=== PATIENT | male | born 1980 | race Caucasian/White ===

== ENCOUNTER 2016-08-04 18:25 | Inpatient (IN) | payer SELFPAY ==
--- NOTE | 2016-08-04 18:37 | PDOC ---
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 The patient had two seizures in front of the hospital with head trauma from falling face down on the concrete. He sustained a laceration to the center of his forehead. The seizures were witnessed by bystanders and ED staff after rapid response was called. The patient was rushed down into the ED. Upon arrival to the hospital, the patient was confused and combative. He currently complains of right shoulder pain. <Jasmyne Red - Last Filed: 08/04/16 19:56> <Noreen Hammodn - Last Filed: 08/05/16 02:36> - General Chief Complaint: Seizure Stated Complaint: SEIZURES Time Seen by Provider: 08/04/16 18:36 Past History <Jasmyne Red - Last Filed: 08/04/16 19:56> <Noreen Hammond - Last Filed: 08/05/16 02:36> - Past Medical History Allergies/Adverse Reactions: Allergies Allergy/AdvReac Type Severity Reaction Status Date / Time Penicillins Allergy Verified 08/04/16 18:56 sulfacetamide sodium Allergy Verified 08/04/16 18:56 [From Sulfamide] Home Medications: Ambulatory Orders Alprazolam 2 mg PO TID 08/04/16 Fluoxetine HCl [Prozac -] 40 mg PO DAILY 08/04/16 Lisdexamfetamine Dimesylate [Vyvanse] 50 mg PO DAILY 08/04/16 Review of Systems - Review of Systems Comments:: 08/04/16 18:44 CONSTITUTIONAL: Absent: fever, chills, diaphoresis, generalized weakness, malaise, loss of appetite HEENT: Present: forehead laceration Absent: rhinorrhea, nasal congestion, throat pain, throat swelling, difficulty swallowing, mouth swelling, ear pain, eye pain, visual changes CARDIOVASCULAR: Absent: chest pain, syncope, palpitations, irregular heart rate, lightheadedness , peripheral edema RESPIRATORY: Absent: cough, shortness of breath, dyspnea with exertion, orthopnea, wheezing, stridor, hemoptysis GASTROINTESTINAL: Absent: abdominal pain, abdominal distension, nausea, vomiting, diarrhea, constipation, melena, hematochezia GENITOURINARY: Absent: dysuria, frequency, urgency, hesitancy, hematuria, flank pain, genital pain MUSCULOSKELETAL: Present: right shoulder pain Absent: myalgia, arthralgia, joint swelling SKIN: Absent: rash, itching, pallor HEMATOLOGIC/IMMUNOLOGIC: Absent: easy bleeding, easy bruising, lymphadenopathy, frequent infections ENDOCRINE: Absent: unexplained weight gain, unexplained weight loss, heat intolerance, cold intolerance NEUROLOGIC: Present: seizures Absent: headache, focal weakness or paresthesia, dizziness, unsteady gait, mental status changes, bladder or bowel incontinence. PSYCHIATRIC: Absent: anxiety, depression, suicidal or homicidal ideation, hallucinations <Jasmyne Red - Last Filed: 08/04/16 19:56> *Physical Exam - Physical Exam Comments: 08/04/16 19:40 GENERAL: Well developed, well nourished. Combative, confused, in distress. HEENT: Normocephalic. 3cm linear forehead laceration. PERRLA, EOMI. No conjunctival pallor. Sclera are non-icteric. Moist mucous membranes. Oropharynx is clear. NECK: Supple. Full ROM. No JVD. Carotid pulses 2+ and symmetric, without bruits. No thyromegaly. No lymphadenopathy. CARDIOVASCULAR: Tachycardic. No murmurs, rubs, or gallops. Distal pulses are 2+ and symmetric. PULMONARY: No evidence of respiratory distress. Lungs clear to auscultation bilaterally. No wheezing, rales or rhonchi. ABDOMINAL: Soft. Non-tender. Non-distended. No rebound or guarding. No organomegaly. Normoactive bowel sounds. MUSCULOSKELETAL: Normal range of motion at all joints. No bony deformities or tenderness. No CVA tenderness. EXTREMITIES: No cyanosis. No clubbing. No edema. No calf tenderness. SKIN: Warm and dry. Normal capillary refill. No rashes. No jaundice. NEUROLOGICAL: Confused, combative. Tremulous. Cranial nerves 2-12 intact. Normal speech. <Jasmyne Red - Last Filed: 08/04/16 19:56> Procedures - Joint Reduction Right Joint Reduction Site: right: Anterior Dislocation (rt shoulder) Pre-Procedure NV Exam: normal Conscious Sedation: Yes Reduction Attempts: 4 Anesthetic: 1% Lidocaine Amount (mL): 10 Anesthesia: Fentanyl (total 300mg fentanyl) Procedure: Traction Counter Traction (we tried modified stemsi also) Post-Procedure NV Exam: normal Post Joint Reduction Film: joint not reduced Splint: Yes Immobilized: Yes <Noreen Hammond - Last Filed: 08/05/16 02:36> ED Treatment Course - LABORATORY CBC & Chemistry Diagram: 08/04/16 19:00 08/04/16 19:00 - RADIOLOGY Radiograph Interpretation: 08/04/16 19:10 Chest X-Ray Impression: Normal chest. Reported By: Hari Douglas MD 08/04/16 19:[address] Impression: Normal CT scan of the head. No evidence of acute intracranial pathology. Reported By: Hari Douglas MD 08/04/16 19:56 Right Shoulder X-Ray Impression: Anterior shoulder dislocation. Reported By: aHri Douglas MD <Jasmyne Red - Last Filed: 08/04/16 19:56> - LABORATORY CBC & Chemistry Diagram: 08/04/16 19:00 08/04/16 19:00 <Noreen Hammond - Last Filed: 08/05/16 02:36> Medical Decision Making - Critical Care Time Total Critical Care Time (minutes): 120 Critical Care Statement: The care of this patient involved high complexity decision making to prevent further life threatening deterioration of the patient 's condition and/or to evalute & treat vital organ system(s) failure or risk of failure. - Medical Decision Making 08/04/16 21:54 36 yo male had witnessed tonic clonic seizure where he fell forward and landed on his head sustaining a linear forehead laceration and rt shoulder dislocation It occurred in front of the hospital and was a "RAPID RESPONSE" -pt does take xanax 2mg po TID daily and states that he DID take his dose today pt placed on gurney and brought to ER,given ativan 2mg IVP ct scan brain -no acute intracranial pathology -no gross focal neuro deficits now -spoke w neuro Dr Martino who recommended KEPPRA 100mg loading dose and then start keppra 750mg po BID -labs reviewed,cbc and chemistries essentially unremarkable drug tox negative w except for benzo which we gave him 08/05/16 00:57 rt shoulder anterior displacement CONSENT FOR CONSCIOUS SEDATION signed pt received propofol, fentanyl,etomidate -multiple attempts failed to reduce shoulder dislocation. Right arm has Good radial and ulnar pulses,sensation intact,2+ proprioception --pt feels sleepy and on manager cardiac -multiple attempts to reduce rt shoulder dislocation failed .will have to admit plan- admit for ortho and neuro consults 08/05/16 02:35 <Noreen Hammond - Last Filed: 08/05/16 02:36> *DC/Admit/Observation/Transfer - Attestations Scribe Attestion: 08/04/16 19:44 Documentation prepared by Jasmyne Red, acting as internist medical doctor md for Noreen Hammond MD. <Jasmyne Red - Last Filed: 08/04/16 19:56> - Discharge Dispostion Admit: Yes <Noreen Hammond - Last Filed: 08/05/16 02:36> Diagnosis at time of Disposition: Seizure Head trauma Qualifiers: Encounter type: initial encounter Qualified Code(s): S09.90XA - Unspecified injury of head, initial encounter Forehead laceration Qualifiers: Encounter type: initial encounter Qualified Code(s): S01.81XA - Laceration without foreign body of other part of head, initial encounter Dislocation of right shoulder joint Qualifiers: Encounter type: initial encounter Qualified Code(s): S43.004A - Unspecified dislocation of right shoulder joint, initial encounter - Referrals
[2016-08-04 18:56] VITALS: BMI 32.5
[2016-08-04 19:05] LABS: BASOPHIL 0.4 % (0-2.0); EOSINOPHIL 0.5 % (0-4.5); MCH 26.9 pg (25.7-33.7); MCHC 32.5 g/dl (32.0-35.9); MEAN CELL VOLUME 82.5 fl (80-96); MEAN PLT VOLUME 7.6 fl (7.5-11.1); NEUTROPHILS 68.4 % (42.8-82.8); PLATELET COUNT 243 K/MM3 (134-434); RDW 13.5 % (11.9-15.9)
[2016-08-04 19:14] LABS: INR 0.97 (0.82-1.09); PROTHROMBIN TIME (PATIENT) 10.7 SEC (9.98-11.88)
[2016-08-04 19:39] LABS: ALBUMIN 4.1 g/dl (3.4-5.0); ANION GAP 13 (8-16); CALCIUM 9.6 mg/dL (8.5-10.1); CO2 23 mmol/L (21-32); GLUCOSE,RANDOM 87 mg/dL (74-106); SGOT/AST 31 U/L (15-37); SGPT/ALT 58 U/L (12-78)
[2016-08-04 19:41] LABS: ALK PHOS 77 U/L (45-117); BILIRUBIN,TOTAL 0.2 mg/dL (0.2-1.0); COCKROFT - GAULT 137
[2016-08-04] MEDS ORDERED: LIDOCAINE HCL 2% (20ML MULTI-DOSE VIAL) NR ONE (19:56)
[2016-08-04 20:23] LABS: URINE APPEARANCE CLEAR; URINE BILIRUBIN NEGATIVE (NEGATIVE); URINE BLOOD NEGATIVE (NEGATIVE); URINE COLOR STRAW; URINE GLUCOSE (UA) NEGATIVE (NEGATIVE); URINE KETONE NEGATIVE (NEGATIVE); URINE LEUK ESTERASE NEGATIVE (NEGATIVE); URINE NITRITE NEGATIVE (NEGATIVE); URINE PROTEIN NEGATIVE (NEGATIVE); URINE UROBILINOGEN NEGATIVE E.U./dl (0.2-1.0)
[2016-08-04 20:26] LABS: URINE MARIJUANA THC NEGATIVE ng/ml (CUTOFF=50)
[2016-08-04] MEDS ORDERED: PROPOFOL 20 ML ONE ×2 (20:45→21:19)
[2016-08-04] MEDS ORDERED: PROPOFOL 200 MG/20 ML VIAL IVPUSH ONE ×3 (20:59→23:08)
[2016-08-04] MEDS ORDERED: ETOMIDATE 20 MG/10 ML AMPUL IVPUSH ONE ×2 (22:41→23:07)
[2016-08-04] MEDS ORDERED: levETIRAcetam 500 MG/5 ML INJECTION VIAL IVPB ONE (23:58)
[2016-08-05] MEDS ORDERED: levETIRAcetam 500 MG/5 ML INJECTION VIAL IVPB ONE (00:41)
[2016-08-05] MEDS ORDERED: morphine CARPU-JECT 2 MG/1 ML DISP.SYRIN IVPUSH ONE (01:08)
--- NOTE | 2016-08-05 01:26 | HP ---
CHIEF COMPLAINT: Seizure Activity, R- Shoulder Pain, PCP: [facility] ([address] [place] [address] #[phone]) HISTORY OF PRESENT ILLNESS: This is a 36 y/o with a past medical history of Classical Conditioning, PTSD ( served in [place]), Anxiety. Who is presenting to the ED after having seizures in front of the hospital. The patient had two seizures in front of the hospital with head trauma from falling face down on the concrete. He sustained a laceration to the center of his forehead. The seizures were witnessed by bystanders and ED staff after rapid response was called. The patient was rushed down into the ED. Upon arrival to the hospital, the patient was confused and combative. He currently complains of right shoulder pain. Patient reports taking his alprazolam medications 2x daily, but due to recent deaths in his family, he reports taking alprazolam 3x daily- last dose 08/04, 8:30am. Patient denies fever, chills, NELSON, cervical pain, cough, SOB, CP, AP, N/V/D, constipation, dysuria. Patient denies alcohol or street drug use. ER course was notable for: (1) Head CT- No ICH, no mass or lesions (2) Right Shoulder Xray- Anterior Shoulder Dislocation (3) EKG- NSR, no ST or TWI Recent Travel: None PAST MEDICAL HISTORY: See HPI PAST SURGICAL HISTORY: See HPI Social History: Smoking: Cigarettes 5-10/day Alcohol: Denies Drugs: None, except Rx Benzodiazipine Family History: Father: [place], 2/2 [place], Mother: Lymphoma, Pneumonia, Brother: Lung Ca, Brother: Cancer, unknown Allergies Penicillins Allergy (Verified 08/04/16 18:56) sulfacetamide sodium [From Sulfamide] Allergy (Verified 08/04/16 18:56) HOME MEDICATIONS: Home Medications Medication Instructions Recorded Alprazolam 2 mg PO TID 08/04/16 Fluoxetine HCl [Prozac -] 40 mg PO DAILY 08/04/16 Lisdexamfetamine Dimesylate 50 mg PO DAILY 08/04/16 [Vyvanse] REVIEW OF SYSTEMS CONSTITUTIONAL: Absent: fever, chills, diaphoresis, generalized weakness, malaise, loss of appetite, weight change HEENT: Absent: rhinorrhea, nasal congestion, throat pain, throat swelling, difficulty swallowing, mouth swelling, ear pain, eye pain, visual changes CARDIOVASCULAR: Absent: chest pain, syncope, palpitations, irregular heart rate, lightheadedness , peripheral edema RESPIRATORY: Absent: cough, shortness of breath, dyspnea with exertion, orthopnea, wheezing, stridor, hemoptysis GASTROINTESTINAL: Absent: abdominal pain, abdominal distension, nausea, vomiting, diarrhea, constipation, melena, hematochezia GENITOURINARY: Absent: dysuria, frequency, urgency, hesitancy, hematuria, flank pain, genital pain MUSCULOSKELETAL: right shoulder pain Absent: myalgia, arthralgia, joint swelling, back pain, neck pain SKIN: Absent: rash, itching, pallor HEMATOLOGIC/IMMUNOLOGIC: Absent: easy bleeding, easy bruising, lymphadenopathy, frequent infections ENDOCRINE: Absent: unexplained weight gain, unexplained weight loss, heat intolerance, cold intolerance NEUROLOGIC: seizure Absent: headache, focal weakness or paresthesias, dizziness, unsteady gait, mental status changes, bladder or bowel incontinence PSYCHIATRIC: depression Absent: anxiety, suicidal or homicidal ideation, hallucinations. PHYSICAL EXAMINATION GENERAL: Awake, alert, and fully oriented, in mild distress. HEAD: Normal with laceration repair to mid forehead, abrasion to L- forehead. EYES: Pupils dilated, equal, round and reactive to light, extraocular movements intact, sclera anicteric, conjunctiva clear. No lid lag. EARS, NOSE, THROAT: Ears normal, nares patent, oropharynx clear without exudates. Moist mucous membranes. NECK: Normal range of motion, supple without lymphadenopathy, JVD, or masses. LUNGS: Breath sounds equal, clear to auscultation bilaterally. No wheezes, and no crackles. No accessory muscle use. HEART: Regular rate and rhythm, normal S1 and S2 without murmur, rub or gallop. ABDOMEN: Soft, nontender, not distended, normoactive bowel sounds, no guarding, no rebound, no masses. No hepatomegaly or splenomegaly. MUSCULOSKELETAL: LROM at RUE, with tenderness to palpation. Normal range of motion at joints LUE, RLE, LLE. No bony deformities. No CVA tenderness. UPPER EXTREMITIES: 2+ pulses, warm, well-perfused. No cyanosis. No clubbing. No peripheral edema. LOWER EXTREMITIES: 2+ pulses, warm, well-perfused. No calf tenderness. No peripheral edema. NEUROLOGICAL: Cranial nerves II-XII intact. Normal speech. Gait not observed PSYCHIATRIC: Cooperative. Good eye contact. Appropriate mood and affect. SKIN: Warm, dry, normal turgor, no rashes or lesions noted, normal capillary refill. Laboratory Results - last 24 hr 3 08/04/16 08/04/16 08/04/16 19:00 19:00 19:00 WBC 8.0 RBC 5.35 Hgb 14.4 Hct 44.1 MCV 82.5 MCHC 32.5 RDW 13.5 Plt Count 243 MPV 7.6 Neutrophils % 68.4 Lymphocytes % 24.2 Monocytes % 6.5 Eosinophils % 0.5 Basophils % 0.4 INR 0.97 Sodium 139 Potassium 4.6 Chloride 103 Carbon Dioxide 23 Anion Gap 13 BUN 14 Creatinine 1.0 Creat Clearance w eGFR > 60 Random Glucose 87 Calcium 9.6 Total Bilirubin 0.2 AST 31 ALT 58 Alkaline Phosphatase 77 Total Protein 8.0 Albumin 4.1 Urine Color Urine Appearance Urine pH Ur Specific Terral Urine Protein Urine Glucose (UA) Urine Ketones Urine Blood Urine Nitrite Urine Bilirubin Urine Urobilinogen Ur Leukocyte Esterase Opiates Screen Methadone Screen Barbiturate Screen Phencyclidine Screen Ur Amphetamines Screen MDMA (Ecstasy) Screen Benzodiazepines Screen Cocaine Screen U Marijuana (THC) Screen Blood Type Antibody Screen 3 08/04/16 08/04/16 08/04/16 19:00 19:50 19:50 WBC RBC Hgb Hct MCV MCHC RDW Plt Count MPV Neutrophils % Lymphocytes % Monocytes % Eosinophils % Basophils % INR Sodium Potassium Chloride Carbon Dioxide Anion Gap BUN Creatinine Creat Clearance w eGFR Random Glucose Calcium Total Bilirubin AST ALT Alkaline Phosphatase Total Protein Albumin Urine Color Straw Urine Appearance Clear Urine pH 5.0 Ur Specific Terral 1.013 Urine Protein Negative Urine Glucose (UA) Negative Urine Ketones Negative Urine Blood Negative Urine Nitrite Negative Urine Bilirubin Negative Urine Urobilinogen Negative Ur Leukocyte Esterase Negative Opiates Screen Negative Methadone Screen Negative Barbiturate Screen Negative Phencyclidine Screen Negative Ur Amphetamines Screen Negative MDMA (Ecstasy) Screen Negative Benzodiazepines Screen Positive Cocaine Screen Negative U Marijuana (THC) Screen Negative Blood Type O POSITIVE Antibody Screen Negative RADIOLOGY Radiograph Interpretation: 08/04/16 19:10 Chest X-Ray Impression: Normal chest. Reported By: Hari Douglas MD 08/04/16 19:[address] Impression: Normal CT scan of the head. No evidence of acute intracranial pathology. Reported By: Hari Douglas MD 08/04/16 19:56 Right Shoulder X-Ray Impression: Anterior shoulder dislocation. Reported By: Hari Douglas MD ASSESSMENT/PLAN: This is a 36 y/o male with a PMHx of: Classical Conditioning, PTSD (served in [place]), Anxiety. Presents to ED with seizure activity, combative, agitated , right shoulder pain. Admitted to Non Cardiac Tele for New Onset Seizure, R- Anterior Shoulder Dislocation for further evaluation of their emergent condition. Plan: 1. Neuro: New Onset Seizure - Non Cardiac Tele Monitoring - Likely possible withdrawal from Benzodiazepine vs alcohol vs tumor - Keppra given as loading dose in ED - Will continue [place] 750mg po BID, per neuro recommendations - Appreciate Neurology Consult -2. Derm: Laceration Repair, Facial Abrasion - Continue Wound care - Tetanus Diptheria vaccine ordered 3. Psych: PTSD/Anxiety - Continue Prozac, VyVanse - Taper alprazolam, discuss with Neuro for recommendations - f/u Psychiatrist as a outpatient 4. FEN - D51/2 NS@100kg/hr - Replete lytes prn- Check Mg - NPO 5. DVT/PPI Prophylaxis - OOB - SCDs - Zantac Code Status: Full Code Problem List - Problem (1) Dislocation of right shoulder joint Code(s): S43.004A - UNSPECIFIED DISLOCATION OF RIGHT SHOULDER JOINT, INIT ENCNTR Qualifiers: Encounter type: initial encounter Qualified Code(s): S43.004A - Unspecified dislocation of right shoulder joint, initial encounter (2) Forehead laceration Code(s): S01.81XA - LACERATION W/O FOREIGN BODY OF OTH PART OF HEAD, INIT ENCNTR Qualifiers: Encounter type: initial encounter Qualified Code(s): S01.81XA - Laceration without foreign body of other part of head, initial encounter (3) Head trauma Code(s): S09.90XA - UNSPECIFIED INJURY OF HEAD, INITIAL ENCOUNTER Qualifiers: Encounter type: initial encounter Qualified Code(s): S09.90XA - Unspecified injury of head, initial encounter (4) Seizure Code(s): R56.9 - UNSPECIFIED CONVULSIONS (5) PTSD (post-traumatic stress disorder) Code(s): F43.10 - POST-TRAUMATIC STRESS DISORDER, UNSPECIFIED Visit type - Emergency Visit Emergency Visit: Yes ED Registration Date: 08/05/16 Care time: The patient presented to the Emergency Department on the above date and was hospitalized for further evaluation of their emergent condition. - New Patient This patient is new to me today: Yes Date on this admission: 08/05/16 - Critical Care Critical Care patient: No
[2016-08-05] MEDS ORDERED: morphine CARPU-JECT 2 MG/1 ML DISP.SYRIN ONE (01:30)
[2016-08-05] MEDS ORDERED: morphine CARPU-JECT 4 MG/1 ML DISP.SYRIN IVPUSH PRN ×2 (02:24→03:07)
[2016-08-05] MEDS ORDERED: DEXTROSE 5%-0.45% SALINE 1,000 ML IV SCH (02:30)
[2016-08-05] MEDS ORDERED: morphine CARPU-JECT 4 MG/1 ML DISP.SYRIN ONE (02:49)
[2016-08-05] MEDS ORDERED: TETANUS AND DIPHTHERIA TOXOID 0.5 ML DISP.SYRIN IM ONE (09:00)
[2016-08-05] MEDS: levETIRAcetam 250 MG TABLET (FP) PO SCH ×2 (09:43→21:15)
[2016-08-05] MEDS ORDERED: OXYCODONE/APAP 5/325MG COMBO TABLET PO PRN (12:25)
[2016-08-05] MEDS ORDERED: HYDROmorphone HCL CARPU-JECT 1 MG/1 ML DISP.SYRIN IVPUSH ONE (12:30)
--- NOTE | 2016-08-05 13:47 | PN ---
Teaching Attending Note Name of Resident: Bryanna Méndez ATTENDING PHYSICIAN STATEMENT I saw and evaluated the patient. I reviewed the resident's note and discussed the case with the resident. I agree with the resident's findings and plan as documented. SUBJECTIVE:states he was walking through the hospital parking lot to his friends and the next thing he recalls is sitting in the ER and being told he had a seizure. has no recollection of the incident but notes he did urinate on himself. states he has been compliant with his medications and have not missed any doses. never had seizure in the past, no recent travel or URI/GI/bladder symptoms. no recent abx. denies CP, SOB,fever, chills, cough, dysuria, hematuria , diarrhea, illicit drug use. states he developed pruritic rash on his RUE assoc with throat pruritis after receiving morphine earlier today, symptoms resolved after benadryl. never had similar reaction in the past. unaware if he had morphine in past (1st exposure in the ER without symptoms) R shoulder pain is controlled with dilaudid has been having loose stool for several weeks, have been following with GI and is scheduled for colonoscopy OBJECTIVE: Last Vital Signs Temp Pulse Resp BP Pulse Ox 98 F 68 18 136/60 100 08/05/16 10:08/05/16 10:00 08/05/16 10:08/05/16 10:08/05/16 09:00 General NAD, poor dentition, laceration mid forhead, well approximated and abrasion superior to L eye CV S1 S2 RRR no murmur/rub/gallop Lungs CTA B/L no wheezing/rales/rhonchi Abdomen soft NT/ND extremities able to move R digits. holding RUE in rigid position. pulses intact. did not attempt to move extremity ASSESSMENT AND PLAN: 36yo M with PMH PTSD, depression with aggression presents to the hospital and was admitted for further evaluation of their emergent condition 1. seizure- 1st episode. unclear provoking factors (no infection, did not miss BZD dosing, hypoglycemia/hyperglycemia) head CT is negative for acute pathology. was loaded with keppra in the ER. neuro has been consulted. will cont keppra at this time but likely not indicated. further workup per neuro. local wound care to laceration and abrasions 2. R shoulder dislocation- failed manual dislocation in the ER. ortho consulted and plan is for OR in AM for reduction. pain control with dilaudid. 3. drug reaction rash- allergy to morphine. improved with benadryl. no reaction noted to dilaudid. monitor closely. 4. PTSD and depression- will resume home medications. [facility]. 5. dvt ppx- EAM
--- NOTE | 2016-08-05 14:10 | PN ---
Physical Exam: SUBJECTIVE: Patient seen and examined, walked into patient having allergic rxn right after morphine injection for pain control. LUE forearm developing hives, patient c/o pruritus. Benadryl given symptoms resolved. No more seizure episodes. Patient states he need to be taking his alprazolam as scheduled, claims her gets urine checked regularly to see if he is taking his medication. Patient states if he does not take the alprazolam he becomes very violent. OBJECTIVE: Vital Signs Period Temp Pulse Resp BP Sys/[place] Pulse Ox Last 24 Hr 97.8 F-98.6 F 66-86 18-20 110-136/60-90 96-100 GENERAL: The patient is awake, alert, and fully oriented, in no acute distress. HEAD: laceration noted above right eyebrow, closed, small amt surrounding erythema, no swelling EYES: PERRL, extraocular movements intact, sclera anicteric, conjunctiva clear. No ptosis. LUNGS: Breath sounds equal, clear to auscultation bilaterally, no wheezes, no crackles, no accessory muscle use. HEART: Regular rate and rhythm, S1, S2 without murmur, rub or gallop. ABDOMEN: Soft, nontender, nondistended, normoactive bowel sounds, no guarding, no rebound, no hepatosplenomegaly, no masses. EXTREMITIES: 2+ pulses, warm, well-perfused, no edema. Left forearm developing hives, erythema; decreased ROM right shoulder NEUROLOGICAL: Cranial nerves II through XII grossly intact. Normal speech, gait not observed. 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 -first episode of seizure with urinary incontinence and confusion after episode -loaded with keppra -consult with neurology the need for continued anti seizure medications, due to this being first seizure #right shoulder dislocation after fall s/p seizure -trial of manual relocation failed -ortho consulted; OR in am -dilaudid 1mg q4h prn ; pain -npo after midnight #allergic drug reaction: -resolved with Benadryl #PTSD: -continue home alprazolam -hold vyvanse #depression: -cont prozac #FEN: -po intake -electrolytes wnl -npo after midnight #VTE prophylaxis: scds Visit type - Emergency Visit Emergency Visit: Yes ED Registration Date: 08/05/16 Care time: The patient presented to the Emergency Department on the above date and was hospitalized for further evaluation of their emergent condition. - New Patient This patient is new to me today: Yes Date on this admission: 08/05/16 - Critical Care Critical Care patient: No
[2016-08-05] MEDS: FLUoxetine HCL 20 MG CAPSULE (FP) PO SCH (15:27)
[2016-08-05] MEDS: ALPRAZolam 2 MG TABLET PO SCH ×2 (15:28→21:15)
[2016-08-05] MEDS: HYDROmorphone HCL CARPU-JECT 1 MG/1 ML DISP.SYRIN IVPUSH PRN ×2 (16:45→21:14)
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
[2016-08-05] MEDS: METHYLPHENIDATE HCL 5 MG TABLET PO SCH (21:15)
--- NOTE | 2016-08-05 22:56 | EKG ---
Test Reason : Blood Pressure : / mmHG Vent. Rate : 082 BPM Atrial Rate : 082 BPM P-R Int : 120 ms QRS Dur : 094 ms QT Int : 358 ms P-R-T Axes : 020 038 028 degrees QTc Int : 418 ms NORMAL SINUS RHYTHM NORMAL ECG NO PREVIOUS ECGS AVAILABLE Confirmed by HOMAR BELLAMY MD ([id number]) on 08/05/2016 10:55:59 PM Referred By: Confirmed By:HOMAR BELLAMY MD
[2016-08-06] MEDS: HYDROmorphone HCL CARPU-JECT 1 MG/1 ML DISP.SYRIN IVPUSH PRN ×2 (01:39→06:05)
[2016-08-06] MEDS: ALPRAZolam 2 MG TABLET PO SCH ×3 (06:05→22:56)
[2016-08-06] MEDS ORDERED: oxyCODONE HCL 5 MG TABLET PO PRN (07:57)
[2016-08-06] MEDS ORDERED: HYDROmorphone HCL CARPU-JECT 2 MG/1 ML DISP.SYRIN IVPUSH PRN (07:57)
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
[2016-08-06 08:36] LABS: BASOPHIL 0.5 % (0-2.0); EOSINOPHIL 2.2 % (0-4.5); MCHC 32.9 g/dl (32.0-35.9); MEAN PLT VOLUME 7.5 fl (7.5-11.1); NEUTROPHILS 52.7 % (42.8-82.8); PLATELET COUNT 212 K/MM3 (134-434); WHITE BLOOD COUNT 6.5 K/mm3 (4.0-10.0)
[2016-08-06 08:39] LABS: CREATININE 0.8 mg/dL (0.7-1.3); MAGNESIUM 2.1 mg/dL (1.8-2.4); PHOSPHOROUS 3.5 mg/dL (2.5-4.9)
[2016-08-06 08:54] LABS: INR 1.08 (0.82-1.09); PROTHROMBIN TIME (PATIENT) 11.9 SEC (9.98-11.88)
[2016-08-06 08:57] LABS: ACTIVATED PTT 22.8 SECONDS (26.9-34.4)
[2016-08-06] MEDS: levETIRAcetam 250 MG TABLET (FP) PO SCH (09:05)
[2016-08-06] MEDS: FLUoxetine HCL 20 MG CAPSULE (FP) PO SCH (09:05)
[2016-08-06] MEDS: METHYLPHENIDATE HCL 5 MG TABLET PO SCH ×2 (09:06→20:36)
--- NOTE | 2016-08-06 09:47 | PN ---
Progress Note (short form) - Note Progress Note: Pt seen and examined. He is a 36 year old right hand dom male who dislocated his right shoulder 2 days ago after a seizure. He never had a seizure before, does not have a known seizure disorder. He had no head trauma, or other trauma. He has subluxed or dislocated his right shoulder 2 x before. Xrays in the ER showed an inferior dislocation of the right glenohumeral joint. A subsequent CT scan shows that the GH joint is reduced. PE RUE is grossly NVI Good ROM throughtout, including the shoulder, elbow, forearm, wrist, fingers Imp Possible multidirectional instability of the right shoulder GH joint, vs post seizure dislocation Plan We are taking the pt to the OR today for a closed reduction if dislocated , and an assessment of the degree of instability. Keep NPO
--- NOTE | 2016-08-06 11:00 | CON.NEURO ---
Consult Consult Specialty:: neurology - History of Present Illness History of Present Illness: 36 y/o with a past medical history of PTSD (served in [place]), Anxiety. Who is presenting to the ED after having seizures in front of the hospital on 08/05/16 . The patient had two seizures in front of the hospital with head trauma from falling face down on the concrete. He sustained a laceration to the center of his forehead. The seizures were witnessed by bystanders and ED staff. Upon arrival to the hospital, the patient was confused and combative. 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 He currently complains of right shoulder pain + dislocation R. Patient reports taking his alprazolam medications 2x daily, but due to recent deaths in his family, he reports taking alprazolam 3x daily- last dose 08/04, 8: 30am. +stressors Head CT- No ICH, no mass or lesions Right Shoulder Xray- Anterior Shoulder Dislocation started on KEPPRA empirically in ED - History Source History Provided By: Patient, Medical Record - Alcohol/Substance Use Hx Alcohol Use: No - Smoking History Smoking history: Current every day smoker Have you smoked in the past 12 months: Yes Aproximately how many cigarettes per day: 10 Home Medications - Allergies Allergies/Adverse Reactions: Allergies Allergy/AdvReac Type Severity Reaction Status Date / Time Penicillins Allergy Verified 08/04/16 18:56 sulfacetamide sodium Allergy Verified 08/04/16 18:56 [From Sulfamide] morphine AdvReac Itching Verified 08/06/16 08:01 - Home Medications Home Medications: Ambulatory Orders Alprazolam 2 mg PO TID 08/04/16 Fluoxetine HCl [Prozac -] 40 mg PO DAILY 08/04/16 Lisdexamfetamine Dimesylate [Vyvanse] 50 mg PO DAILY 08/04/16 Physical Exam-Neuro Vital Signs: Vital Signs Temperature 97.9 F 08/06/16 07:49 Pulse Rate 69 08/06/16 07:49 Respiratory Rate 20 08/06/16 07:49 Blood Pressure 111/71 08/06/16 07:49 O2 Sat by Pulse Oximetry (%) 96 08/06/16 08:52 Constitutional: Yes: Well Nourished Cardiovascular: Yes: Regular Rate and Rhythm Respiratory: Yes: CTA Bilaterally Gastrointestinal: Yes: Normal Bowel Sounds Labs: CBC, BMP 08/06/16 05:50 08/06/16 05:50 INR, PTT INR 1.08 (0.82-1.09) 08/06/16 08:00 - Neuro Exam Level Of Consciousness: Yes: Alert, Oriented to Person (right facial laceration , EOMI, VFF, no facial, motor: reduced ROM R shoulder , rest 5/5, reflexes symmetrric ) NIH Stroke Scale - Total Score NIH Stroke Scale Score: 0 Imaging - Results Cat Scan: Report Reviewed Problem List - Problems (1) Dislocation of right shoulder joint Code(s): S43.004A - UNSPECIFIED DISLOCATION OF RIGHT SHOULDER JOINT, INIT ENCNTR Qualifiers: Encounter type: initial encounter Qualified Code(s): S43.004A - Unspecified dislocation of right shoulder joint, initial encounter (2) Forehead laceration Code(s): S01.81XA - LACERATION W/O FOREIGN BODY OF OTH PART OF HEAD, INIT ENCNTR Qualifiers: Encounter type: initial encounter Qualified Code(s): S01.81XA - Laceration without foreign body of other part of head, initial encounter (3) Head trauma Code(s): S09.90XA - UNSPECIFIED INJURY OF HEAD, INITIAL ENCOUNTER Qualifiers: Encounter type: initial encounter Qualified Code(s): S09.90XA - Unspecified injury of head, initial encounter (4) PTSD (post-traumatic stress disorder) Code(s): F43.10 - POST-TRAUMATIC STRESS DISORDER, UNSPECIFIED (5) Seizure Code(s): R56.9 - UNSPECIFIED CONVULSIONS Assessment/Plan 36 y/o with a past medical history of PTSD (served in [place]), Anxiety. Who is presenting to the ED after having seizures in front of the hospital on 08/05/16 . The patient had two seizures in front of the hospital with head trauma from falling face down on the concrete. He sustained a laceration to the center of his forehead. The seizures were witnessed by bystanders and ED staff. Upon arrival to the hospital, the patient was confused and combative. 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 He currently complains of right shoulder pain + dislocation R. new onset seziures, ? RX induced vs from prior barin trauma vs stressor (though appears to be a epileptic convulsion) would dc keppra and start depkaote 500BID ( may help with mood stability as well ) check MRI BRAIN outpt EEG will need to bridge his medicines to ensure he has enough (insurances issues), elise martinez Dr [phone]
--- NOTE | 2016-08-06 12:30 | PN ---
Teaching Attending Note Name of Resident: Bryanna Méndez ATTENDING PHYSICIAN STATEMENT I saw and evaluated the patient. I reviewed the resident's note and discussed the case with the resident. I agree with the resident's findings and plan as documented. SUBJECTIVE:c/o R shoulder pain that improved with pain medications. no reported seizure like activity. denies CP, SOB,fever, chills, OBJECTIVE: Last Vital Signs Temp Pulse Resp BP Pulse Ox 97.9 F 69 20 111/71 96 08/06/16 07:49 08/06/16 07:49 08/06/16 07:49 08/06/16 07:49 08/06/16 08:52 General NAD, poor dentition, laceration mid forhead, well approximated and abrasion superior to L eye CV S1 S2 RRR no murmur/rub/gallop extremities able to move R digits. holding RUE in rigid position. pulses intact. did not attempt to move extremity ASSESSMENT AND PLAN: 36yo M with PMH PTSD, depression with aggression presents to the hospital and was admitted for further evaluation of their emergent condition 1. seizure-no repeated seizure like activity. appreciate neuro recommendations. 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 MRI brain pending. will switch keppra to depakote. will need to follow as outpatient and outpatient EEG. 2. R shoulder dislocation- NPO for reduction in the OR, ortho on board. pain control. 3. drug reaction rash- histamine reaction to morphine. improved with benadryl 4. PTSD and depression- will resume home medications. [facility]. call placed out to confirm medications with them 5. dvt ppx- EAM 6. d/c planning home pending results of ortho intervention and MRI
[2016-08-06] MEDS ORDERED: PROPOFOL 20 ML ONE ×3 (12:40→13:58)
[2016-08-06] MEDS ORDERED: MIDAZOLAM HCL 2 MG/2 ML SINGLE DOSE VIAL ONE ×2 (12:40→12:41)
--- NOTE | 2016-08-06 13:02 | OP ---
Operative Note - Note: Operative Date: 08/06/16 ([facility]) Pre-Operative Diagnosis: right shoulder dislocation Operation: right shoulder closed reduction and examination under anesthesia Post-Operative Diagnosis: Same as Pre-op Surgeon: Mina Ballesteros Fairing Man: German Leonard Anesthesiologist/VAT CLEANER: Pinky Grey MD Anesthesia: General Operative Report Dictated: Yes
[2016-08-06] MEDS ORDERED: ONDANSETRON 4 MG/2 ML VIAL IVPUSH PRN (13:06)
[2016-08-06] MEDS ORDERED: LACTATED RINGERS SOLUTION 1,000 ML IV SCH (13:15)
[2016-08-06] MEDS: HYDROmorphone HCL CARPU-JECT 2 MG/1 ML DISP.SYRIN IVPUSH PRN ×2 (16:28→20:26)
[2016-08-06] MEDS ORDERED: DIVALPROEX SODIUM 500 MG TABLET E.C. PO SCH (22:00)
[2016-08-06] MEDS: oxyCODONE HCL 5 MG TABLET PO PRN (22:56)
[2016-08-06] MEDS: DIVALPROEX SODIUM 500 MG TABLET E.C. PO SCH (22:57)
[2016-08-07] MEDS: HYDROmorphone HCL CARPU-JECT 2 MG/1 ML DISP.SYRIN IVPUSH PRN ×6 (01:53→22:17)
[2016-08-07] MEDS: METHYLPHENIDATE HCL 5 MG TABLET PO SCH ×3 (05:27→22:18)
[2016-08-07] MEDS: ALPRAZolam 2 MG TABLET PO SCH ×3 (05:34→22:18)
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
[2016-08-07] MEDS: DIVALPROEX SODIUM 500 MG TABLET E.C. PO SCH ×2 (09:39→22:17)
[2016-08-07] MEDS: oxyCODONE HCL 5 MG TABLET PO PRN ×3 (09:39→18:52)
[2016-08-07] MEDS: FLUoxetine HCL 20 MG CAPSULE (FP) PO SCH (09:40)
--- NOTE | 2016-08-07 11:02 | PN ---
Progress Note (short form) - Note Progress Note: Anesthesiology post-op POD#1 s/p exam under general anesthesia. Pt. awake and alert, feels well, denies pain or nausea. VSS. No apparent anesthesia-related issues.
--- NOTE | 2016-08-07 13:59 | PN ---
Teaching Attending Note Name of Resident: Bryanna Méndez ATTENDING PHYSICIAN STATEMENT I saw and evaluated the patient. I reviewed the resident's note and discussed the case with the resident. I agree with the resident's findings and plan as documented. SUBJECTIVE:pain controlled with pain medications. denies CP, SOB,fever, chills, N/V/C/D OBJECTIVE: Last Vital Signs Temp Pulse Resp BP Pulse Ox 98.1 F 72 22 128/61 95 08/07/16 09:00 08/07/16 09:00 08/07/16 09:00 08/07/16 09:00 08/06/16 22:00 General NAD, poor dentition, CV S1 S2 RRR no murmur/rub/gallop extremities able to move R digits. RUE in sling ASSESSMENT AND PLAN: 36yo M with PMH PTSD, depression with aggression presents to the hospital and was admitted for further evaluation of their emergent condition 1. seizure-no repeated seizure like activity. MRI brain pending. if normal can d /c on depakote to f/u with neuro with outpatient EEG. 2. R shoulder dislocation- s/p reduction in OR yesterday. will need elective surgery as outpatient. pain control. PT 3. drug reaction rash- histamine reaction to morphine. improved with benadryl 4. PTSD and depression-cotn home medications 5. dvt ppx- EAM 6. d/c planning home pending results of MRI
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
[2016-08-08] MEDS: oxyCODONE HCL 5 MG TABLET PO PRN ×2 (00:10→09:49)
[2016-08-08] MEDS: HYDROmorphone HCL CARPU-JECT 2 MG/1 ML DISP.SYRIN IVPUSH PRN (05:22)
[2016-08-08] MEDS: ALPRAZolam 2 MG TABLET PO SCH ×2 (06:02→14:38)
[2016-08-08] MEDS: FLUoxetine HCL 20 MG CAPSULE (FP) PO SCH (09:37)
[2016-08-08] MEDS: DIVALPROEX SODIUM 500 MG TABLET E.C. PO SCH (09:37)
[2016-08-08] MEDS: METHYLPHENIDATE HCL 5 MG TABLET PO SCH (09:38)
--- NOTE | 2016-08-08 10:48 | PN ---
Progress Note (short form) - Note Progress Note: DECREASED PAIN AND IMPROVED AROM RIGHT SHOULDER PLAN: CONTINUE SLING, WILL FOLLOW
[2016-08-08] MEDS ORDERED: LORazepam 1 MG TABLET PO STA (11:47)
--- NOTE | 2016-08-08 12:06 | PN ---
Teaching Attending Note Name of Resident: Ofelia Aldridge ATTENDING PHYSICIAN STATEMENT I saw and evaluated the patient. I reviewed the resident's note and discussed the case with the resident. I agree with the resident's findings and plan as documented. SUBJECTIVE:pain has improved. denies CP, SOB,fever, chills, N/V/C/D OBJECTIVE: Last Vital Signs Temp Pulse Resp BP Pulse Ox 98 F 74 18 147/84 100 08/08/16 09:00 08/08/16 09:00 08/08/16 09:00 08/08/16 09:00 08/08/16 09:00 General NAD, poor dentition, CV S1 S2 RRR no murmur/rub/gallop extremities able to move R digits. RUE in sling ASSESSMENT AND PLAN: 36yo M with PMH PTSD, depression with aggression presents to the hospital and was admitted for further evaluation of their emergent condition 1. seizure-no repeated seizure like activity. MRI brain pending. if normal can d /c on depakote to f/u with neuro with outpatient EEG. 2. R shoulder dislocation- s/p reduction in OR. pain is improved. will need elective surgery as outpatient. pain control. PT 3. drug reaction rash- histamine reaction to morphine. improved with benadryl 4. PTSD and depression-cotn home medications 5. dvt ppx- EAM 6. d/c planning home pending results of MRI, pt is having difficulty obtaining his prescriptions. he is leaving for a month to get personal affairs in order ( father and brother ) his insurance is for [place] yet [facility]. agreed to prescribe 1 month prescription for controlled substances as he becomes violent when off the medications. encouraged appropriate [facility] with the [facility] and [facility]ist.
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
[2016-08-08 14:51] VITALS: BP 129/91; PULSE 107; TEMP 100
== END 2016-08-08 15:16 | disposition home or self-care (01) | DRG 342 ==
LOC: JER 18:25 → JERBED 08-05 01:08 → UNDOADMIN 08-05 01:08 → JERBED 08-05 02:13 → J4W 08-05 03:45
PROVIDERS: ADMIT Internal Medicine; ATTEND Internal Medicine
PROC: 0RSJXZZ Reposition Right Shoulder Joint, External Approach (ICD-10-PCS; principal; 2016-08-04)
PROC: 0RSJXZZ Reposition Right Shoulder Joint, External Approach (ICD-10-PCS; 2016-08-06)
PROC: 0XJ2XZZ Inspection of Right Shoulder Region, External Approach (ICD-10-PCS; 2016-08-06)
DX: S43.084A Other dislocation of right shoulder joint, initial encounter (principal); S01.81XA Laceration without foreign body of other part of head, initial encounter; F43.10 Post-traumatic stress disorder, unspecified; W18.39XA Other fall on same level, initial encounter; Y93.89 Activity, other specified; Y92.488 Other paved roadways as the place of occurrence of the external cause; Y99.8 Other external cause status; F41.9 Anxiety disorder, unspecified; R56.9 Unspecified convulsions; T40.2X5A Adverse effect of other opioids, initial encounter; S09.90XA Unspecified injury of head, initial encounter
CPT/HCPCS: 36415; 70450-TC; 70551-TC; 71010-TC; 73030-TC-RT; 73200-TC-RT; 76000-TC; 80048; 80053; 80307; 81003; 83735; 84100; 85025; 85610; 85730; 86850; 86900; 86901; 93005; 93010; 94760; 97116-GP; 97161-GP; 99285-25

== ENCOUNTER 2017-01-05 20:23 | Inpatient (IN) | payer OTHER ==
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
[2017-01-05] MEDS ORDERED: LORazepam 2 MG/ML SDV VIAL ONE (20:46)
[2017-01-05 20:53] LABS: BASOPHIL 0.5 % (0-2.0); EOSINOPHIL 1.1 % (0-4.5); MCH 27.3 pg (25.7-33.7); MCHC 33.2 g/dl (32.0-35.9); MEAN CELL VOLUME 82.3 fl (80-96); MEAN PLT VOLUME 7.6 fl (7.5-11.1); NEUTROPHILS 58.6 % (42.8-82.8); PLATELET COUNT 189 K/MM3 (134-434); RDW 14.1 % (11.9-15.9); WHITE BLOOD COUNT 6.2 K/mm3 (4.0-10.0)
[2017-01-05 21:09] LABS: URINE APPEARANCE SLCLOUDY; URINE BILIRUBIN NEGATIVE (NEGATIVE); URINE BLOOD 1+ (NEGATIVE); URINE COLOR AMBER; URINE GLUCOSE (UA) 3+ (NEGATIVE); URINE KETONE TRACE (NEGATIVE); URINE LEUK ESTERASE NEGATIVE (NEGATIVE); URINE NITRITE NEGATIVE (NEGATIVE); URINE UROBILINOGEN 4.0 E.U/dl mg/dL (0.2-1.0)
[2017-01-05 21:17] LABS: URINE PROTEIN 1+ (NEGATIVE)
[2017-01-05 21:19] LABS: URINE BACTERIA RARE /hpf (NONE SEEN); URINE HYALINE CAST 1 /lpf; URINE MUCUS FEW; URINE RBC 2 /hpf (0-3); URINE WBC 1 /hpf (3-5)
[2017-01-05] MEDS ORDERED: levETIRAcetam 500 MG/5 ML INJECTION VIAL IVPB ONE ×2 (21:20→21:26)
[2017-01-05 21:23] LABS: URINE MARIJUANA THC NEGATIVE ng/ml (CUTOFF=50)
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
[2017-01-05] MEDS ORDERED: SODIUM CHLORIDE 0.9% 1000 ML INFUS.BAG IV ONE (22:11)
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
[2017-01-06 00:15] LABS: ALBUMIN 3.1 g/dl (3.4-5.0); ANION GAP 8 (8-16); BILIRUBIN,TOTAL 0.3 mg/dL (0.2-1.0); CALCIUM 8.1 mg/dL (8.5-10.1); CO2 25 mmol/L (21-32); CREATININE 0.9 mg/dL (0.7-1.3); GLUCOSE,RANDOM 101 mg/dL (74-106); SGOT/AST 27 U/L (15-37); SGPT/ALT 44 U/L (12-78); TOT PROT 6.1 g/dl (6.4-8.2)
[2017-01-06 00:16] LABS: ALK PHOS 58 U/L (45-117)
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
[2017-01-06 05:19] VITALS: BMI 30.7
[2017-01-06] MEDS ORDERED: LORazepam 2 MG/ML SDV VIAL ONE (07:35)
[2017-01-06] MEDS ORDERED: levETIRAcetam 500 MG/5 ML INJECTION VIAL IVPB ONE (08:13)
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
[2017-01-06] MEDS ORDERED: VALPROATE SODIUM 500 MG/5 ML VIAL IVPB ONE (08:26)
[2017-01-06] MEDS: levETIRAcetam 500 MG/5 ML INJECTION VIAL IVPB ONE ×2 (08:53→09:09)
[2017-01-06] MEDS ORDERED: LORazepam 2 MG/ML SDV VIAL IVPUSH PRN (09:31)
[2017-01-06 09:34] LABS: BASOPHIL 0.7 % (0-2.0); EOSINOPHIL 3.1 % (0-4.5); MEAN CELL VOLUME 81.8 fl (80-96); MEAN PLT VOLUME 7.1 fl (7.5-11.1); NEUTROPHILS 54.5 % (42.8-82.8); PLATELET COUNT 175 K/MM3 (134-434); RDW 13.9 % (11.9-15.9); WHITE BLOOD COUNT 5.6 K/mm3 (4.0-10.0)
--- NOTE | 2017-01-06 09:36 | EKG ---
Test Reason : Blood Pressure : / mmHG Vent. Rate : 082 BPM Atrial Rate : 082 BPM P-R Int : 128 ms QRS Dur : 096 ms QT Int : 386 ms P-R-T Axes : 024 052 022 degrees QTc Int : 450 ms NORMAL SINUS RHYTHM NORMAL ECG WHEN COMPARED WITH ECG OF 04-AUG-2016 18:51, NO SIGNIFICANT CHANGE WAS FOUND Confirmed by HOMAR BELLAMY MD ([id number]) on 01/06/2017 9:35:42 AM Referred By: Confirmed By:HOMAR BELLAMY MD
[2017-01-06 09:56] LABS: ALBUMIN 3.1 g/dl (3.4-5.0); ANION GAP 5 (8-16); BILIRUBIN,TOTAL 0.5 mg/dL (0.2-1.0); CO2 27 mmol/L (21-32); GLUCOSE,RANDOM 137 mg/dL (74-106); PHOSPHOROUS 2.3 mg/dL (2.5-4.9); SGOT/AST 26 U/L (15-37); SGPT/ALT 42 U/L (12-78); TOT PROT 6.1 g/dl (6.4-8.2)
[2017-01-06 09:57] LABS: ALK PHOS 55 U/L (45-117)
[2017-01-06] MEDS ORDERED: levETIRAcetam 500 MG/5 ML INJECTION VIAL IVPB SCH ×2 (10:00)
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
[2017-01-06] MEDS ORDERED: ACETAMINOPHEN 500 MG TABLET (FP) PO ONE (13:56)
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
[2017-01-06] MEDS ORDERED: PT OWN MED DRAWER 7, Y5N ONE ×3 (17:09→22:16)
[2017-01-06] MEDS ORDERED: NAPH,MB-DB/K PH,MBDB POWDER PACKET PO ONE (18:44)
[2017-01-06] MEDS: FLUoxetine HCL 20 MG CAPSULE (FP) PO SCH (19:32)
--- NOTE | 2017-01-06 21:12 | HOSP ---
Subjective - Review of Symptoms Subjective: Pt. had shoulder dislocation possibly from seizure WILL CONTACT ORTHO FOR REDUCTION CASE DISCUSSED WITH RESIDENT PAIN CONTROL Physical Examination Vital Signs: Vital Signs Temperature 98.6 F 01/06/17 20:00 Pulse Rate 92 H 01/06/17 20:00 Respiratory Rate 19 01/06/17 20:00 Blood Pressure 118/94 01/06/17 20:00 O2 Sat by Pulse Oximetry (%) 100 01/06/17 19:43 Labs: CBC, BMP 01/06/17 09:15 01/06/17 09:15
[2017-01-06] MEDS ORDERED: HYDROmorphone HCL CARPU-JECT 1 MG/1 ML DISP.SYRIN IVPUSH ONE (21:22)
[2017-01-06] MEDS ORDERED: PROPOFOL 100 ML ONE (21:38)
[2017-01-06] MEDS ORDERED: PROPOFOL 200 MG/20 ML VIAL IVPUSH ONE (21:45)
--- NOTE | 2017-01-06 21:53 | HOSP ---
Subjective - Review of Symptoms Subjective: Shoulder dislocation ortho contacted Asked ED Dr. Feliciano and resident Dr Alves for assistance and Dr. Alves came up to ICU under supervision of Dr. feliciano Propofol given to sedate patient with standard ASA monitors in place. CO2 monitor in place. Intubation kit at bedside placed on nasal cannula O2 Propofol 100mg IV push given to sedate patient an additional 20mg give and once patient was sedated shoulder reduced on its own patient maintained spontaneous ventilation the whole time post reduction Xray ordered Arm Neurovascularly intact Physical Examination Vital Signs: Vital Signs Temperature 98.6 F 01/06/17 20:00 Pulse Rate 92 H 01/06/17 20:00 Respiratory Rate 19 01/06/17 20:00 Blood Pressure 118/94 01/06/17 20:00 O2 Sat by Pulse Oximetry (%) 100 01/06/17 19:43 Labs: CBC, BMP 01/06/17 09:15 01/06/17 09:15 Visit type - Emergency Visit Emergency Visit: Yes ED Registration Date: 01/06/17 Care time: The patient presented to the Emergency Department on the above date and was hospitalized for further evaluation of their emergent condition. - New Patient This patient is new to me today: Yes Date on this admission: 01/06/17 - Critical Care Critical Care patient: Yes Total Critical Care Time (in minutes): 45 Critical Care Statement: The care of this patient involved high complexity decision making to prevent further life threatening deterioration of the patient 's condition and/or to evaluate & treat vital organ system(s) failure or risk of failure.
[2017-01-06] MEDS ORDERED: VALPROATE SODIUM 500 MG/5 ML VIAL IVPB SCH (22:00)
[2017-01-06] MEDS ORDERED: AMITRIPTYLINE HCL 50 MG TABLET PO SCH (22:00)
[2017-01-06] MEDS: levETIRAcetam 500 MG/5 ML INJECTION VIAL IVPB SCH (22:30)
[2017-01-06] MEDS: VALPROATE SODIUM 500 MG/5 ML VIAL IVPB SCH (22:30)
[2017-01-06] MEDS ORDERED: AMITRIPTYLINE HCL 25 MG TABLET (FP) PO SCH ×2 (22:30→23:00)
[2017-01-07 00:32] LABS: HIV 1 & 2 AB NEGATIVE; HIV 1 AGp24 NEGATIVE
[2017-01-07 06:16] LABS: MCH 27.3 pg (25.7-33.7); MCHC 33.2 g/dl (32.0-35.9); MEAN CELL VOLUME 82.1 fl (80-96); MEAN PLT VOLUME 7.2 fl (7.5-11.1); PLATELET COUNT 202 K/MM3 (134-434); RDW 13.6 % (11.9-15.9); WHITE BLOOD COUNT 5.9 K/mm3 (4.0-10.0)
[2017-01-07 06:46] LABS: ALBUMIN 2.9 g/dl (3.4-5.0); ANION GAP 9 (8-16); CO2 24 mmol/L (21-32); MAGNESIUM 2.1 mg/dL (1.8-2.4)
[2017-01-07 06:52] LABS: ALK PHOS 54 U/L (45-117); BILIRUBIN,TOTAL 0.4 mg/dL (0.2-1.0); CREATININE 0.7 mg/dL (0.7-1.3); GLUCOSE,RANDOM 97 mg/dL (74-106); PHOSPHOROUS 3.4 mg/dL (2.5-4.9); SGOT/AST 18 U/L (15-37); SGPT/ALT 38 U/L (12-78)
[2017-01-07] MEDS ORDERED: POTASSIUM CHLORIDE TABS 20 MEQ TABLET.ER (FP) PO ONE (08:00)
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
[2017-01-07] MEDS ORDERED: PT OWN MED DRAWER 7, Y5N ONE (09:32)
[2017-01-07] MEDS: VALPROATE SODIUM 500 MG/5 ML VIAL IVPB SCH (09:34)
[2017-01-07] MEDS: FLUoxetine HCL 20 MG CAPSULE (FP) PO SCH (09:35)
[2017-01-07] MEDS: levETIRAcetam 500 MG/5 ML INJECTION VIAL IVPB SCH (09:35)
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
--- NOTE | 2017-01-07 10:11 | PN ---
Progress Note (short form) - Note Progress Note: Pt has a recurrent right shoulder dislocation. Closed reduction cannot be done at bedside. Plan - Pt to go to OR today for general anesthesia, relaxation, and attempted closed reduction. NPO
[2017-01-07] MEDS ORDERED: ACETAMINOPHEN 500 MG TABLET (FP) PO PRN (10:33)
[2017-01-07] MEDS: oxyCODONE HCL 5 MG TABLET PO PRN ×3 (11:00→19:57)
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
[2017-01-07] MEDS ORDERED: LIDOCAINE HCL/PF 2% SDV 5ML VIAL ONE (14:30)
[2017-01-07] MEDS ORDERED: KETOROLAC TROMETHAMINE 30 MG/1 ML VIAL ONE (14:30)
[2017-01-07] MEDS ORDERED: SUCCINYLCHOLINE CHLORIDE 200 MG/10 ML VIAL ONE (14:31)
[2017-01-07] MEDS ORDERED: PROPOFOL 20 ML ONE ×3 (14:31→14:38)
--- NOTE | 2017-01-07 14:45 | OP ---
Operative Note - Note: Operative Date: 01/07/17 Pre-Operative Diagnosis: dislocated right shoulder Operation: closed reduction under anesthesia right shoulder Post-Operative Diagnosis: Same as Pre-op Surgeon: Nathan Guaman Anesthesiologist/[employer]: Javi Miramontes Anesthesia: General Estimated Blood Loss (mls): 0 Drains, Volume Out (mls): 0 Blood Volume Replaced (mls): 0 Fluid Volume Replaced (mls): 300 Operative Report Dictated: Yes
[2017-01-07] MEDS ORDERED: LORazepam 2 MG/ML SDV VIAL IVPUSH PRN (17:31)
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
[2017-01-07] MEDS: levETIRAcetam 500 MG TABLET (FP) PO SCH (21:28)
[2017-01-07] MEDS: DIVALPROEX SODIUM 500 MG TABLET E.C. PO SCH (21:28)
[2017-01-07] MEDS: AMITRIPTYLINE HCL 25 MG TABLET (FP) PO SCH (21:55)
[2017-01-07] MEDS: ACETAMINOPHEN 500 MG TABLET (FP) PO PRN (21:55)
[2017-01-07] MEDS ORDERED: VALPROATE SODIUM 500 MG/5 ML VIAL IVPB SCH (22:00)
[2017-01-07] MEDS ORDERED: levETIRAcetam 500 MG/5 ML INJECTION VIAL IVPB SCH (22:00)
[2017-01-08] MEDS: oxyCODONE HCL 5 MG TABLET PO PRN ×5 (00:23→22:04)
--- NOTE | 2017-01-08 06:38 | OP ---
DATE OF OPERATION: DATE OF DICTATION: 01/07/2017 PREOPERATIVE DIAGNOSIS: Dislocated right shoulder. POSTOPERATIVE DIAGNOSIS: Dislocated right shoulder. PROCEDURE PERFORMED: Closed reduction under anesthesia right shoulder. SURGEON: RAFA BOYD M.D. ANESTHESIOLOGIST: Javi Miramontes M.D. ANESTHESIA: General anesthesia. DRAINS: None. COMPLICATIONS: None. BLOOD LOSS: None. BLOOD GIVEN: None. FLUID REPLACEMENT: 300 mL. INDICATIONS: The patient is a 36-year-old male with clinical history of a recurrent right shoulder dislocated. He presented with a dislocated right shoulder after a seizure. He understands the potential risks, complications, alternatives and benefits of surgery versus nonsurgical treatment. DESCRIPTION OF PROCEDURE: The patient was brought to the operating room, peripheral IV placed, IV sedation given. Deep general sedation, without an endotracheal tube or LMA, just a mask, was performed, and I was able to easily reduce the right shoulder. X-rays confirmed reduction in all planes. It did not feel obviously unstable. He was put into a shoulder immobilizer and brought back to the ICU. There was no aspect of the case. Once he was anesthetized, it took approximately 2 minutes. The patient understands that he has significant right shoulder instability. He has already talked about doing a right shoulder replacement with Dr. Juventino Pierre at the surgery. RAFA BOYD M.D. [id number]
[2017-01-08 08:15] LABS: MCH 26.9 pg (25.7-33.7); MCHC 32.4 g/dl (32.0-35.9); MEAN CELL VOLUME 82.9 fl (80-96); MEAN PLT VOLUME 7.1 fl (7.5-11.1); PLATELET COUNT 194 K/MM3 (134-434); RDW 13.8 % (11.9-15.9); WHITE BLOOD COUNT 5.8 K/mm3 (4.0-10.0)
[2017-01-08 08:42] LABS: ANION GAP 6 (8-16); CALCIUM 8.4 mg/dL (8.5-10.1); CO2 29 mmol/L (21-32); GLUCOSE,RANDOM 91 mg/dL (74-106); MAGNESIUM 2.2 mg/dL (1.8-2.4)
[2017-01-08 08:43] LABS: CREATININE 0.9 mg/dL (0.7-1.3)
[2017-01-08] MEDS ORDERED: PT OWN MED DRAWER 7, Y5N ONE (09:07)
[2017-01-08] MEDS: levETIRAcetam 500 MG TABLET (FP) PO SCH ×2 (09:10→21:03)
[2017-01-08] MEDS: DIVALPROEX SODIUM 500 MG TABLET E.C. PO SCH ×2 (09:10→21:03)
[2017-01-08] MEDS: FLUoxetine HCL 20 MG CAPSULE (FP) PO SCH (09:11)
[2017-01-08 10:13] LABS: QFT TB AG - NIL VALUE 0.02 IU/mL (.); QUANT MITOGEN VALUE 8.88 IU/mL (.); QUANT NIL VALUE 0.02 IU/mL (.); QUANT TB AG VALUE 0.04 IU/mL (.); QUANTIFERON GOLD Negative (Negative)
--- NOTE | 2017-01-08 11:02 | PN ---
Progress Note (short form) - Note Progress Note: Ortho Pt seen and examined s/p right shoulder closed reduction immobilizer in place, full rom of elbow,wrist and hand nvi a/p continue immobilization ok to d/c from ortho pov d/w Dr. Guaman
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
[2017-01-08] MEDS: ALPRAZolam 2 MG TABLET PO PRN ×2 (12:13→21:03)
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
[2017-01-08] MEDS: AMITRIPTYLINE HCL 25 MG TABLET (FP) PO SCH (21:03)
[2017-01-08] MEDS: HEPARIN NA (PORCINE) 5,000 UNITS/ML 1ML VIAL SQ SCH (21:03)
[2017-01-09] MEDS: oxyCODONE HCL 5 MG TABLET PO PRN ×2 (04:48→09:21)
[2017-01-09] MEDS: ALPRAZolam 2 MG TABLET PO PRN ×3 (05:34→21:52)
--- NOTE | 2017-01-09 07:06 | PN ---
Progress Note, Physician Chief Complaint: s/p closed reduction right shoulder under general anesthesia post op day one. History of Present Illness: post op day one, IV and oral analgesics for post op pain - Current Medication List Current Medications: Active Medications Acetaminophen (Tylenol -) 1,000 mg PO Q6H PRN PRN Reason: FEVER OR PAIN Last Admin: 01/07/17 21:55 Dose: 1,000 mg Alprazolam (Xanax -) 1 mg PO TID PRN PRN Reason: AGITATION Last Admin: 01/09/17 05:34 Dose: 1 mg Amitriptyline HCl (Elavil -) 50 mg PO HS [facility] Last Admin: 01/08/17 21:03 Dose: 50 mg Divalproex Sodium (Depakote -) 1,000 mg PO BID [facility] Last Admin: 01/08/17 21:03 Dose: 1,000 mg Fluoxetine HCl (Prozac -) 40 mg PO DAILY [facility] Last Admin: 01/08/17 09:11 Dose: 40 mg Heparin Sodium (Porcine) (Heparin -) 5,000 unit SQ BID [facility] Last Admin: 01/08/17 21:03 Dose: 5,000 unit Levetiracetam (Keppra -) 1,000 mg PO BID [facility] Last Admin: 01/08/17 21:03 Dose: 1,000 mg Oxycodone HCl (Roxicodone -) 10 mg PO Q4H PRN PRN Reason: PAIN LEVEL 6-10 Last Admin: 01/09/17 04:48 Dose: 10 mg - Objective Vital Signs: Vital Signs Temperature 98.0 F 01/09/17 02:00 Pulse Rate 62 01/09/17 02:00 Respiratory Rate 20 01/09/17 02:00 Blood Pressure 100/62 01/09/17 02:00 O2 Sat by Pulse Oximetry (%) 100 01/06/17 19:43 Constitutional: Yes: Well Nourished Cardiovascular: Yes: WNL Respiratory: Yes: WNL Gastrointestinal: Yes: WNL Labs: CBC, BMP 01/08/17 06:45 01/08/17 06:45 Assessment/Plan patient reports adequate pain control, no adverse effects from anesthetic, dept of anesthesia will sign off care at this time
[2017-01-09] MEDS ORDERED: PT OWN MED DRAWER 7, Y5N ONE (09:18)
[2017-01-09] MEDS: DIVALPROEX SODIUM 500 MG TABLET E.C. PO SCH ×2 (09:20→21:32)
[2017-01-09] MEDS: levETIRAcetam 500 MG TABLET (FP) PO SCH ×2 (09:20→21:32)
[2017-01-09] MEDS: HEPARIN NA (PORCINE) 5,000 UNITS/ML 1ML VIAL SQ SCH ×2 (09:20→21:32)
[2017-01-09] MEDS: FLUoxetine HCL 20 MG CAPSULE (FP) PO SCH (09:20)
[2017-01-09] MEDS ORDERED: traMADol HCL 50 MG TABLET PO PRN (11:17)
[2017-01-09] MEDS ORDERED: oxyCODONE HCL 5 MG TABLET PO PRN ×2 (14:00)
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
[2017-01-09] MEDS: ACETAMINOPHEN 500 MG TABLET (FP) PO PRN (16:06)
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
[2017-01-09] MEDS: oxyCODONE HCL 5 MG TABLET PO SCH (21:32)
[2017-01-09] MEDS: AMITRIPTYLINE HCL 25 MG TABLET (FP) PO SCH (21:33)
[2017-01-10] MEDS ORDERED: PT OWN MED DRAWER 7, Y5N ONE (09:42)
[2017-01-10] MEDS: levETIRAcetam 500 MG TABLET (FP) PO SCH (09:44)
[2017-01-10] MEDS: DIVALPROEX SODIUM 500 MG TABLET E.C. PO SCH (09:44)
[2017-01-10] MEDS: oxyCODONE HCL 5 MG TABLET PO SCH (09:45)
[2017-01-10] MEDS: HEPARIN NA (PORCINE) 5,000 UNITS/ML 1ML VIAL SQ SCH (09:46)
[2017-01-10] MEDS: FLUoxetine HCL 20 MG CAPSULE (FP) PO SCH (09:46)
[2017-01-10] MEDS: ALPRAZolam 2 MG TABLET PO PRN (12:41)
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
[2017-01-10 15:13] VITALS: BP 132/77; PULSE 82; TEMP 98.6
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
== END 2017-01-10 18:28 | disposition home or self-care (01) | DRG 342 ==
LOC: JER 20:23 → JERBED 01-06 01:51 → UNDOADMOB 01-06 01:58 → J2W 01-06 04:55 → JICU 01-06 08:38 → OBSVTOIN 01-06 09:03 → J6S 01-07 19:14
PROVIDERS: ADMIT Internal Medicine; ATTEND Internal Medicine
PROC: 0PSCXZZ Reposition Right Humeral Head, External Approach (ICD-10-PCS; principal; 2017-01-07 14:00)
DX: S43.004A Unspecified dislocation of right shoulder joint, initial encounter (principal); S09.90XA Unspecified injury of head, initial encounter; G40.909 Epilepsy, unspecified, not intractable, without status epilepticus; F41.9 Anxiety disorder, unspecified; F32.9 Major depressive disorder, single episode, unspecified; Z88.0 Allergy status to penicillin; F17.210 Nicotine dependence, cigarettes, uncomplicated; F43.10 Post-traumatic stress disorder, unspecified; Z91.14 Patient's other noncompliance with medication regimen; E87.2 Acidosis; F14.10 Cocaine abuse, uncomplicated; V03.00XA Pedestrian on foot injured in collision with car, pick-up truck or van in nontraffic accident, initial encounter; Y93.89 Activity, other specified; Y92.488 Other paved roadways as the place of occurrence of the external cause; Y99.8 Other external cause status
CPT/HCPCS: 36415; 70450-TC; 71250-TC; 72125-TC; 73030-TC-RT; 74176-TC; 76000-TC; 80048; 80053; 80164; 80307; 81003; 81015; 83605; 83735; 84100; 85025; 85027; 86480; 87389; 93005; 93010; 93970-TC; 95816; 97116-GP; 97161-GP; 99282-25; G0378; J1644

== ENCOUNTER 2021-10-28 08:50 | Emergency (ER) | payer OTHER ==
[2021-10-28 09:17] VITALS: TEMP 98.1; BMI 38.0
[2021-10-28] MEDS ORDERED: KETOROLAC TROMETHAMINE 60 MG/2 ML VIAL IM ONE (10:10)
[2021-10-28] MEDS ORDERED: KETOROLAC TROMETHAMINE 60 MG/2 ML VIAL ONE (10:23)
[2021-10-28] MEDS ORDERED: PROPOFOL 200 MG/20 ML VIAL IVPUSH ONE ×4 (11:05→13:32)
[2021-10-28] MEDS ORDERED: KETAMINE HCL 200 MG/20 ML VIAL IVPUSH ONE ×2 (11:05→11:55)
[2021-10-28] MEDS ORDERED: KETAMINE HCL 200 MG/20 ML VIAL ONE (11:13)
[2021-10-28] MEDS ORDERED: PROPOFOL 20 ML ONE ×2 (11:13→12:26)
[2021-10-28] MEDS ORDERED: MIDAZOLAM HCL 5 MG/1 ML Single Dose Vial IVPUSH ONE (12:21)
[2021-10-28] MEDS ORDERED: MIDAZOLAM HCL 2 MG/2 ML SINGLE DOSE VIAL ONE (12:22)
[2021-10-28 14:53] VITALS: BP 150/90; PULSE 72; RESP 18
== END 2021-10-28 15:15 | disposition left against medical advice (07) ==
LOC: JER 08:50
PROC: 3E0233Z Introduction of Anti-inflammatory into Muscle, Percutaneous Approach (ICD-10-PCS; principal; 2021-10-28)
PROC: 3E033NZ Introduction of Analgesics, Hypnotics, Sedatives into Peripheral Vein, Percutaneous Approach (ICD-10-PCS; 2021-10-28)
PROC: 3E033GC Introduction of Other Therapeutic Substance into Peripheral Vein, Percutaneous Approach (ICD-10-PCS; 2021-10-28)
DX: S43.004A Unspecified dislocation of right shoulder joint, initial encounter (principal); M25.511 Pain in right shoulder
CPT/HCPCS: 73030-TC-RT-FY; 73060-TC-RT-FY; 99284-25